=== PATIENT | male | born 1985 | race Caucasian/White ===

== ENCOUNTER 2021-10-18 16:37 | Emergency (ER) | payer MEDICAID, SELFPAY ==
[2021-10-18 16:38] VITALS: BP 111/83; PULSE 92; RESP 17; TEMP 36.3; O2SAT 99; BMI 25.0
--- NOTE | 2021-10-18 17:26 | EX.ED.GUMALE ---
HPI History of Present Illness Chief Complaint: Male Pain/Injury Informant: patient Pain Onset: Month(s) (3) Context: Gradual Onset Timing: Continuous Worsened by: Sneezing, coughing, bending Relieved by: Nothing Appearance Lesion(s): No Narrative Narrative: Presents with left groin pain that has been constant for the last 3 months. Patient states it is gradually getting worse. Patient states he noted some swelling in his left groin that comes and goes. Patient states his pain is worse with sneezing, coughing, and bending forward. Patient states that when he has a bowel movement he has to hold his left inguinal area in because it bulges out. Patient describes his pain as cramping. Patient denies any fevers or chills. Patient denies any dysuria or hematuria. Patient does admit to some constipation. Patient states that he has had some blood in his stools but this is only when he has to strain and he also notes he has some hemorrhoids. [facility] Medical History (Updated 10/18/21 @ 20:[address] Brandon Mas DO) Slipped intervertebral disc Home Medications cyclobenzaprine 10 mg PO TID PRN #20 tablet 03/16/14 [Rx Last Taken 03/20/14 22:00] naproxen 500 mg PO BID PRN PRN #20 tab 03/23/14 [Rx Last Taken Unknown] oxycodone-acetaminophen 1 tab PO Q4H PRN PRN #7 tablet 03/23/14 [Rx Last Taken Unknown] amoxicillin 500 mg PO Q8 #30 tab 06/28/14 [Rx Last Taken Unknown] naproxen 500 mg PO BID #20 tab 06/28/14 [Rx Last Taken Unknown] Allergy/AdvReac Type Severity Reaction Status Date / Time acetaminophen [From Vicodin] AdvReac Nausea Verified 10/18/21 16:41 hydrocodone bitartrate AdvReac Nausea Verified 10/18/21 16:41 [From Vicodin] Surgical History (Updated 10/18/21 @ 17:[address] Brandon Mas DO) Hx of rotator cuff surgery Social History Smoking Status: Current every day smoker tobacco type: cigarettes ROS ROS ED Constitutional Constitutional ED: Denies chills or fever(s) Eyes Eyes: Denies blurry vision or change in vision ENT ENT ED: Denies rhinorrhea or sore throat Cardiovascular Cardiovascular: Denies chest pain or palpitations Respiratory/Chest Respiratory/Chest: Denies cough or dyspnea Gastrointestinal Gastrointestinal: Reports abdominal pain and constipation; Denies melena, nausea or vomiting Genitourinary Genitourinary ED: Denies dysuria or hematuria Musculoskeletal Musculoskeletal: Reports back pain; Denies neck pain Integumentary Denies abscess or rash Neurologic Neurologic: Denies headache(s) or weakness Allergic/Immunologic Allergic/Immunologic ED: Denies mouth swelling or urticaria EXAM Physical Exam Const Vital Signs: 10/18/21 16:38 10/18/21 19:00 Temperature 97.3 F L Temperature Source Temporal Pulse Rate 92 76 Respiratory Rate 17 17 Blood Pressure 111/83 H 138/62 H Blood Pressure Mean 92 87 Pulse Ox 99 99 Oxygen Delivery Method Room Air Room Air Positive well nourished and well developed General Appearance ED: well developed and NAD HEENT normocephalic and atraumatic Resp normal respiratory effort and clear to auscultation bilaterally Cardio regular rate and regular rhythm GI non-distended GI Narrative: There is mild left inguinal tenderness. There is no rebound or guarding noted. There is a left inguinal hernia noted. This is easily reducible. There is no evidence of incarceration or strangulation. Palpation: soft Rectal Exam: tenderness Neuro oriented x3, CN's II-XII intact bilaterally, moves all extremities, no focal motor deficits and no sensory deficits noted Sensorium / Orientation: alert Psych mental status grossly normal MDM MDM MDM Narrative Medical decision making narrative: Patient was given IV fluids here. CBC showed a slight anemia with a hemoglobin of 12.7 and hematocrit 37.7. Comprehensive metabolic profile was within normal limits. Urinalysis does not show any evidence of urinary tract infection. CT scan of the abdomen and pelvis was obtained. There is a small umbilical hernia containing fat. There are small lymph nodes noted. There are no other abnormalities noted. This was interpreted by the radiologist and reviewed by myself. Patient was advised of his findings. Patient was advised that this most likely a left inguinal hernia. Patient was advised that it is not incarcerated or strangulated and does not need to be repaired emergently. Patient was given referral for surgery for follow-up care as an outpatient. Patient was instructed to take Tylenol or ibuprofen as needed for pain. Patient understood and was agreeable with the plan. All questions were answered. Lab Data Attestation: I reviewed the patient's lab results. Labs: Laboratory Results - last 24 hr 10/18/21 10/18/21 10/18/21 17:40 17:40 17:45 WBC 6.0 RBC 4.22 L Hgb 12.7 L Hct 37.7 L MCV 89.3 MCH 30.1 MCHC 33.7 RDW Std Deviation 40.8 RDW Coeff of [place] 12.5 Plt Count 280 MPV 8.7 Immature Gran % (Auto) 0.300 Neut % (Auto) 46.2 L Lymph % (Auto) 40.7 [place] % (Auto) 10.3 H Eos % (Auto) 2.2 Baso % (Auto) 0.3 Absolute Neuts (auto) 2.8 Absolute Lymphs (auto) 2.42 Nucleated RBC % 0 Sodium 140 Potassium 4.0 Chloride 103 Carbon Dioxide 31.0 Anion Gap 6 BUN 18 Creatinine 0.83 Estim Creat Clear Calc 117.89 Est GFR (MDRD) Af Amer 134 Est GFR (MDRD) Non-Af 111 BUN/Creatinine Ratio 21.7 H Glucose 90 Calcium 9.0 Total Bilirubin 0.20 AST 21 ALT 57 Alkaline Phosphatase 87 Total Protein 6.7 Albumin 3.5 Globulin 3.2 Albumin/Globulin Ratio 1.1 Urine Color Straw Urine Clarity Clear Urine pH 6.5 Ur Specific [place] 1.015 Urine Protein Negative Urine Glucose (UA) Normal Urine Ketones Negative Urine Occult Blood Negative Urine Nitrite Negative Urine Bilirubin Negative Urine Urobilinogen Normal Ur Leukocyte Esterase Negative Urine RBC 0 SEEN Urine WBC 0 SEEN Ur Squamous Epith Cells 0-5 SEEN Urine Bacteria RARE Urine Mucus 0 SEEN Radiography Diagnostic Testing: Clinical Impression(s) from Imaging Studies Abdomen/Pelvis CT 10/18/21 17:32 IMPRESSION: (NOT LISTED IN ORDER OF SIGNIFICANCE) Multiple subcentimeter inguinal lymph nodes bilaterally. Other findings as above. Electronically Signed: Migue Abraham MD at 19:32 EDT Reading Location ID and State: [facility] / [place] , Service support , Discharge Plan Triage Chief Complaint: Male Pain/Injury ED Provider: Brandon Mas Dx/Rx/DC Orders Clinical Impression: Left inguinal hernia Instructions: ED Hernia (Adult) Prescriptions: No Action cyclobenzaprine 10 MG tablet 10 mg PO TID PRN (Reason: Muscle Spasm) Qty: 20 RF: 0 oxycodone-acetaminophen 1 TABLET tablet 1 tab PO Q4H PRN PRN (Reason: Pain) Qty: 7 RF: 0 naproxen 500 MG tablet 500 mg PO BID PRN PRN (Reason: Pain) Qty: 20 RF: 0 naproxen 500 MG tablet 500 mg PO BID Qty: 20 RF: 0 amoxicillin 500 MG tablet 500 mg PO Q8 Qty: 30 RF: 0 Primary Care Provider: Care Physician,No Primary Referrals: Nigel Neal MD [STAFF PHYSICIAN] - 5-7 Days Care Physician,No Primary [Primary Care Provider] - Disposition Disposition: Home, Self Care
--- NOTE | 2021-10-18 17:32 | CT_ITS ---
STUDY: CT Abdomen And Pelvis W/ Contrast Injection 10/18/2021 7:30 PM REASON FOR EXAM: Male, 36 years old. ABDOMINAL PAIN Abdominal pain Technologist Notes LEFT GROIN PAIN X 3 MONTHS, HX APPY TECHNIQUE: Transaxial images were obtained with oral contrast, and with Oral and amp; IV Gastrografin and amp; 100mL Isovue-300 intravenous contrast. Individualized dose optimization techniques were used for this CT. COMPARISON: None. FINDINGS: The visualized lung bases are unremarkable. The visualized portions of the heart are within normal limits. Unremarkable liver. Unremarkable gallbladder and extrahepatic biliary system. Unremarkable spleen. Unremarkable pancreas. Unremarkable bilateral adrenal glands. No acute findings of the right kidney. No acute findings of the left kidney. Unremarkable visualized stomach. Unremarkable small intestine. Unremarkable colon. There are surgical clips in the region of the appendix consistent with a prior appendectomy. There are no acute findings of the abdominal aorta. Unremarkable inferior vena cava. Subcentimeter mesenteric lymph nodes. Unremarkable urinary bladder. Multiple inguinal nodes. There is an umbilical hernia containing fat. Unremarkable osseous structures. CT/Abdomen/Pelvis WITH Contrast IMPRESSION: (NOT LISTED IN ORDER OF SIGNIFICANCE) Multiple subcentimeter inguinal lymph nodes bilaterally. Other findings as above. Electronically Signed: Migue Abraham MD at 19:32 EDT ,
[2021-10-18] MEDS: 0.9% Normal Saline 1,000 ML 1000 ML IV (17:44)
[2021-10-18 17:49] LABS: Absolute Lymphocyte Count 2.42 X10^3/uL (0.83-4.51); Absolute Neutrophil Count 2.8 X10^3/uL (2.0-7.7); Basophil# 0.02 X10^3/uL; Basophil% 0.3 % (0-1); Eosinophil# 0.13 X10^3/uL; Eosinophils% 2.2 % (0-5); Hematocrit 37.7 % (40-54); Hemoglobin 12.7 g/dL (13.0-16.5); Lymphocyte # 2.42 X10^3/ul (0.83-4.51); Lymphocyte % 40.7 % (19-41); Mean Corp Hgb Conc 33.7 g/dL (32-36); Mean Corpuscular Hgb 30.1 pg (27.0-32.0); Mean Corpuscular Volume 89.3 fL (80-94); Mean Platelet Vol. 8.7 fl (6.2-12.0); Monocyte# 0.61 X10^3/uL; Monocyte% 10.3 % (0-10); NRBC Flagged by Analyzer 0 % (0-5); Neutrophil # 2.75 X10^3/uL (2.7-7.7); Neutrophil % 46.2 % (47-70); Platelet Count 280 K/mm3 (150-450); RBC Distribution Width CV 12.5 % (11.6-14.6); RBC Distribution Width SD 40.8 fl (35.1-43.9); Red Blood Count 4.22 M/mm3 (4.6-6.2)
[2021-10-18 17:55] LABS: Mucous, Urine 0 SEEN /hpf (<or=2+); Red Blood Cells-Urine 0 SEEN /hpf (0-5); White Blood Cells 0 SEEN /hpf (0-5)
[2021-10-18 18:05] LABS: Color, Urine Straw (Yellow); Glucose, Dipstick Normal (Normal); Ketone-Dipstick Negative (Negative); Leukocyte Esterase-Dipstick Negative /ul (Negative); Nitrite-Dipstick Negative (Negative); Occult Blood-Urine Negative /ul (Negative); Protein-Dipstick Negative (Negative); Specific Gravity, Urine 1.015 (1.002-1.030); Urine Bilirubin Dipstick Negative (Negative); Urine Clarity Clear (Clear); Urine Urobilinogen Normal (Normal); Urine pH 6.5 (5.0 - 8.0)
[2021-10-18 18:11] LABS: ALB/GLOB Ratio 1.1 RATIO (0.9-2.4); AST(SGOT) 21 U/L (15-37); Alanine Aminotransfer ALT/SGPT 57 U/L (16-61); Albumin, Serum 3.5 g/dL (3.2-5.0); Alkaline Phosphatase 87 U/L (45-117); Anion Gap 6 (5-15); BUN 18 mg/dL (7-18); BUN/Creat Ratio 21.7 RATIO (10-20); Chloride 103 mmol/L (98-107); Creatinine, Serum 0.83 mg/dL (0.70-1.30); EST Glomerular Filtration Rate 111 mL/min (>60); Est Glom Filt Rate - Afr Amer 134 mL/min (>60); Estimated Creatinine Clearance 117.89 ml/min; Globulin 3.2 g/dL (2.2-4.2); Glucose 90 mg/dL (74-106); Protein, Total 6.7 g/dL (6.4-8.2); Sodium Level 140 mmol/L (136-145)
[2021-10-18 18:51] LABS: Bacteria RARE /hpf (None Seen); Squamous Epithelial Cells - UA 0-5 SEEN /hpf (0-5)
[2021-10-18 19:00] VITALS: BP 138/62; PULSE 76; RESP 17; O2SAT 99
--- NOTE | 2021-10-18 19:30 | CM.ED ---
Social Work Note Pt has no PCP listed. Pt provided PCP list. Juju Kurtz [facility] [employer], [employer]
== END 2021-10-18 20:36 | disposition home or self-care (01) ==
PROVIDERS: Emergency Provider Emergency Medicine; Visit Provider Emergency Medicine
DX: K40.90 Unilateral inguinal hernia, without obstruction or gangrene, not specified as recurrent (principal); F17.210 Nicotine dependence, cigarettes, uncomplicated
CPT/HCPCS: 74177; 80053; 81001; 85025; 96360; 96361; 99283; J7030; Q9967; A4216